=== PATIENT | male | born 1970 | race Caucasian/White ===

== ENCOUNTER 2021-07-09 00:12 | Emergency (ER) | payer OTHER ==
[~2021-07-09] VITALS: Ht 170.2 cm; Wt 90.7 kg
[2021-07-09 00:21] VITALS: BP 162/108
[2021-07-09] MEDS ORDERED: AMOXICILLIN875 MG PO (00:38)
== END 2021-07-09 00:54 | disposition home or self-care (01) ==
LOC: M.ERS 00:12
DX: H92.02 Otalgia, left ear (principal); R09.81 Nasal congestion